=== PATIENT | male | born 1945 | race Caucasian/White ===

== ENCOUNTER 2016-12-12 08:52 | Day surgery (SDC) | payer MEDICARE, BC ==
[2016-12-12] MEDS ORDERED: Lactated Ringers 1,000 ML IV SCH (09:15)
[2016-12-12] MEDS ORDERED: Propofol 200 MG/20 ML SDV ONE (10:41)
[2016-12-12] MEDS ORDERED: fentaNYL 100 MCG/2 ML SDV ONE (10:41)
[2016-12-12] MEDS ORDERED: Midazolam 1 MG/ML 2 ML SDV ONE (10:41)
[2016-12-12 12:16] VITALS: BP 131/75
--- NOTE | 2016-12-13 08:32 | OR ---
DATE OF PROCEDURE: 12/12/2016 PREOPERATIVE DIAGNOSES: Dysphagia, gastroesophageal reflux disease, colon cancer screening. POSTOPERATIVE DIAGNOSES: Mild duodenitis, gastroesophageal reflux disease. Unremarkable colonoscopy. PROCEDURES: Esophagogastroduodenoscopy with antral biopsies for CLOtest and sent for pathology to look for Helicobacter pylori; biopsy of gastroesophageal junction; colonoscopy to the cecum. SURGEON: Darren Paul MD ANESTHESIA: IV anesthesia with monitored anesthesia care. INDICATIONS: This 71-year-old white male is referred for upper and lower endoscopy. Indications for upper endoscopy are dysphagia and a history of gastroesophageal reflux disease. Indication for colonoscopy is colon cancer screening. His last colonoscopic exam he says was ten years ago. I counseled him for the procedures including risks and alternatives, and he gave his informed consent to proceed. DESCRIPTION OF PROCEDURE: The patient was placed in the left lateral decubitus position. IV anesthesia was administered by the Anesthesia Service. Time-out was held. The flexible video Olympus upper endoscope was passed through his mouth, down the esophagus, and into his stomach. The scope was easily passed through the pylorus into the duodenum where it reached the third portion. The scope was then slowly withdrawn examining the mucosa throughout. The distal duodenum appeared unremarkable. In the duodenal bulb, there was some mild erythema consistent with duodenitis. The scope was brought back through the pylorus into the antrum. We obtained antral biopsies for CLOtest and sent tissue for pathology to look for Helicobacter pylori. The scope was retroflexed. The proximal stomach appeared unremarkable. The scope was straightened and brought up to the GE junction. This was abnormal in that the Z -line was not straight. We obtained multiple, totaling at least six biopsies of the gastroesophageal junction. The scope was then brought proximally up through the remainder of the esophagus, which otherwise appeared unremarkable and it was removed. Next, a rectal exam was performed, which was unremarkable. The flexible video Olympus colonoscope was introduced through his anus, up his rectum, and out his colon all the way to the cecum. Once the cecum was reached, the scope was slowly withdrawn examining the mucosa throughout. No mucosal abnormalities were noted. The scope was retroflexed in the rectum with the distal rectum appearing unremarkable. The scope was straightened and removed. He tolerated the procedure well. Darren Paul MD /[id number] JENARO
== END 2016-12-12 12:40 | disposition home or self-care (01) ==
LOC: JP.SDS 08:52
PROVIDERS: ATTEND Surgery
DX: Z12.11 Encounter for screening for malignant neoplasm of colon (principal); K29.50 Unspecified chronic gastritis without bleeding; K31.89 Other diseases of stomach and duodenum; I10 Essential (primary) hypertension; Z95.0 Presence of cardiac pacemaker
CPT/HCPCS: 43239; 87081; 88305; G0121; J2250; J2704; J3010; J7120

== ENCOUNTER 2021-10-11 09:42 | Emergency (ER) | payer MEDICARE, BC ==
[2021-10-11] MEDS ORDERED: Metoprolol Succinate 50 MG Tab.ER PO ONE (10:37)
[2021-10-11] MEDS ORDERED: Ondansetron 4 MG Tab.DIS PO ONE (10:49)
[2021-10-11] MEDS ORDERED: Metoprolol Tartrate 5 MG/5 ML SDV IVPUSH ONE (11:47)
[2021-10-11 12:25] VITALS: BP 161/51; PULSE 60
[2021-10-11] MEDS ORDERED: niCARdipine HCl 25 MG in Sodium Chloride 0.9% 240 ML IV SCH (13:00)
== END 2021-10-11 12:34 ==
LOC: JP.ED 09:42
DX: I61.4 Nontraumatic intracerebral hemorrhage in cerebellum (principal); I25.119 Atherosclerotic heart disease of native coronary artery with unspecified angina pectoris; I11.9 Hypertensive heart disease without heart failure; I25.2 Old myocardial infarction; E78.00 Pure hypercholesterolemia, unspecified; K21.9 Gastro-esophageal reflux disease without esophagitis; E03.9 Hypothyroidism, unspecified; Z95.0 Presence of cardiac pacemaker; Z79.899 Other long term (current) drug therapy; Z87.891 Personal history of nicotine dependence; Z20.822 Contact with and (suspected) exposure to COVID-19
CPT/HCPCS: 36415; 70450; 70450-26; 80048; 85025; 85610; 96374; 96375; 99284-25; 99285; A9270-GY; J3490; J7050; Q0162; U0002

== ENCOUNTER 2023-04-10 14:59 | Emergency (ER) | payer MEDICARE, BC ==
[2023-04-10] MEDS ORDERED: Sodium Chloride 0.9% 500 ML IV SCH (16:15)
[2023-04-10 16:18] LABS: HEMATOCRIT 42.4 % (38.4-49.7); HEMOGLOBIN 14.6 g/dL (12.9-16.9); MEAN CORPUSCULAR HGB CONC 34.4 g/dL (31.6-35.5); MEAN CORPUSCULAR VOLUME 95.7 fL (81.4-99.0); RED BLOOD CELL COUNT 4.43 M/uL (4.14-5.76); WHITE BLOOD CELL COUNT,WBC 5.6 K/uL (3.2-11.0)
[2023-04-10 16:34] LABS: INR 1.1; PROTHROMBIN TIME 11.3 sec (9.2-10.6)
[2023-04-10 16:38] LABS: A/G RATIO 0.9 (1.2-2.2); ALANINE AMINOTRANSFERASE,ALT 18 U/L (12-78); ALBUMIN 3.3 g/dL (3.4-5.0); ALKALINE PHOSPHATASE 111 U/L (46-116); ASPARTATE AMNIOTRANSFERASE,AST 12 U/L (15-37); BILIRUBIN TOTAL 0.3 mg/dL (0.2-1.0); BLOOD UREA NITROGEN,BUN 13 mg/dL (7-18); CALCIUM 8.4 mg/dL (8.5-10.1); CARBON DIOXIDE,CO2 25 mmol/L (21-32); CHLORIDE,CL 106 mmol/L (100-108); CREATININE 0.8 mg/dL (0.8-1.3); ESTIMATED GFR 92 mL/min (>60); GLUCOSE RANDOM 87 mg/dL (74-106); POTASSIUM,K 3.9 mmol/L (3.6-5.2); PROTEIN TOTAL,TP 6.8 g/dL (6.4-8.2); SODIUM,NA 139 mmol/L (140-148)
[2023-04-10 16:39] LABS: ANION GAP 11.9 mmol/L (5.0-14.0)
[2023-04-10] MEDS ORDERED: Sodium Chloride 0.9% 10 ML Syringe FLUSH ONE (16:53)
[2023-04-10] MEDS ORDERED: Sodium Chloride 0.9% 75 ML IV SCH (17:00)
[2023-04-10] MEDS ORDERED: Iopamidol 755 Mg/ML 100 ML Bottle IV SCH (17:00)
[2023-04-10 21:12] VITALS: BP 152/76; PULSE 63
== END 2023-04-10 21:22 | disposition critical access hospital (66) ==
LOC: JP.ED 14:59
DX: I60.9 Nontraumatic subarachnoid hemorrhage, unspecified (principal); I10 Essential (primary) hypertension; I25.119 Atherosclerotic heart disease of native coronary artery with unspecified angina pectoris; E78.00 Pure hypercholesterolemia, unspecified; I25.2 Old myocardial infarction; M19.90 Unspecified osteoarthritis, unspecified site; E03.9 Hypothyroidism, unspecified; Z79.82 Long term (current) use of aspirin; Z79.899 Other long term (current) drug therapy
CPT/HCPCS: 36415; 70450; 70496; 80053; 84443; 85027; 85610; 93005; 99285; J3490; J7030; Q9967